=== PATIENT | male | born 1970 | race Caucasian/White ===

== ENCOUNTER 2022-12-01 10:13 | Day surgery (SDC) | payer BC ==
[~2022-12-01 10:13] MED LIST: Metoclopramide 10 MG/2 ML SDV IV PRN
[2022-12-01] MEDS: Sodium Chloride 0.9% 1,000 ML IV SCH (10:40)
[2022-12-01] MEDS ORDERED: Propofol 1,000 MG/100 ML SDV ONE (11:40)
== END 2022-12-01 12:30 | disposition home or self-care (01) ==
LOC: LB.SDS 10:13
PROVIDERS: ATTEND Surgery
DX: Z12.11 Encounter for screening for malignant neoplasm of colon (principal); D12.0 Benign neoplasm of cecum; I10 Essential (primary) hypertension; E78.5 Hyperlipidemia, unspecified; Z79.899 Other long term (current) drug therapy; Z91.013 Allergy to seafood
CPT/HCPCS: 88305; J2704; J7030